=== PATIENT | female | born 1985 | race Caucasian/White ===

== ENCOUNTER 2019-07-25 00:43 | Emergency (ER) | payer OTHER ==
[~2019-07-25] VITALS: Ht 154.9 cm; Wt 55.3 kg
[~2019-07-25 00:43] MED LIST: AMOXICILLIN500 M1 PO; DILTIAZEM ER60 M1 PO; PREDNISONE 20 M20 M1 PO; PROMETHAZINE-D120 ML PO
[2019-07-25] MEDS ORDERED: XANAX1 MG PO (01:08)
[2019-07-25] MEDS ORDERED: TRAZODONE 150150 M1 PO (01:08)
[2019-07-25 02:09] LABS: URINE BILIRUBIN NEGATIVE (Negative); URINE BLOOD TRACE (Negative); URINE CLARITY CLEAR; URINE COLOR YELLOW; URINE GLUCOSE-RANDOM NEGATIVE (Negative); URINE KETONES NEGATIVE (Negative); URINE LEUKOCYTES-REFLEX NEGATIVE (Negative); URINE NITRITE-REFLEX NEGATIVE (Negative); URINE PROTEIN NEGATIVE (Negative); URINE SPECIFIC GRAVITY >= 1.030 (1.005-1.030); URINE UROBILINOGEN 0.2 E.U./dl (0.2-1.0)
[2019-07-25] MEDS ORDERED: FLEXERIL PO (03:14)
[2019-07-25] MEDS ORDERED: TYLENOL WITH CO1 TA1 PO (03:14)
[2019-07-25 03:30] VITALS: BP 118/78
== END 2019-07-25 03:31 | disposition home or self-care (01) ==
LOC: M.ERS 00:43
PROVIDERS: Emergency Medicine
DX: S80.212A Abrasion, left knee, initial encounter (principal); M54.5 Low back pain; M62.838 Other muscle spasm; I10 Essential (primary) hypertension; F17.210 Nicotine dependence, cigarettes, uncomplicated; Z98.51 Tubal ligation status; Z88.2 Allergy status to sulfonamides; V49.88XA Car occupant (driver) (passenger) injured in other specified transport accidents, initial encounter; Y93.89 Activity, other specified; Y92.89 Other specified places as the place of occurrence of the external cause; Y99.8 Other external cause status

== ENCOUNTER 2021-01-30 18:01 | Emergency (ER) | payer OTHER ==
[~2021-01-30] VITALS: Ht 152.4 cm; Wt 63.5 kg
[~2021-01-30 18:01] MED LIST changes: +FLEXERIL PO; +TRAZODONE 150150 M1 PO; +TYLENOL WITH CO1 TA1 PO; +XANAX1 MG PO
[2021-01-30] MEDS ORDERED: NEURONTIN 300M300 M2 PO (18:24)
[2021-01-30 20:50] VITALS: BP 155/105
== END 2021-01-30 20:50 | disposition home or self-care (01) ==
LOC: M.ERS 18:01
DX: R09.89 Other specified symptoms and signs involving the circulatory and respiratory systems (principal); R53.83 Other fatigue; I10 Essential (primary) hypertension; F17.210 Nicotine dependence, cigarettes, uncomplicated; Z20.822 Contact with and (suspected) exposure to COVID-19; Z88.1 Allergy status to other antibiotic agents; Z88.5 Allergy status to narcotic agent; Z88.2 Allergy status to sulfonamides

== ENCOUNTER 2021-03-07 19:48 | Emergency (ER) | payer OTHER ==
[~2021-03-07] VITALS: Ht 152.4 cm; Wt 65.8 kg
[~2021-03-07 19:48] MED LIST changes: +NEURONTIN 300M300 M2 PO
[2021-03-07 20:05] VITALS: BP 160/98
== END 2021-03-07 20:53 | disposition home or self-care (01) ==
LOC: M.ERS 19:48
DX: R50.9 Fever, unspecified (principal); Z20.822 Contact with and (suspected) exposure to COVID-19; I10 Essential (primary) hypertension; F17.210 Nicotine dependence, cigarettes, uncomplicated; Z98.51 Tubal ligation status; Z86.16 Personal history of COVID-19; Z79.899 Other long term (current) drug therapy; Z88.1 Allergy status to other antibiotic agents; Z88.2 Allergy status to sulfonamides; Z88.5 Allergy status to narcotic agent